=== PATIENT | female | born 1955 ===

== ENCOUNTER 2016-11-20 06:48 | Day surgery (SDC) | payer OTHER, MEDICAID ==
[2016-11-20] MEDS ORDERED: VANCOMYCIN FOR CATARACT SURGERY MC ONE ×2 (07:00)
[2016-11-20] MEDS ORDERED: BALANCED SALT IRRIG SOLN COMB1 500 ML, VANCOMYCIN FOR BSS PLUS 10 MG, GENTAMICIN SULFAT... IO ONE ×4 (07:00)
== END 2016-11-20 07:25 | disposition home or self-care (01) ==
LOC: DS 06:48
PROVIDERS: ATTEND Ophthalmology
DX: H26.9 Unspecified cataract (principal); Z53.9 Procedure and treatment not carried out, unspecified reason; E03.9 Hypothyroidism, unspecified; E66.9 Obesity, unspecified
CPT/HCPCS: A4663; J0171; J1580; J3370; J7030

== ENCOUNTER 2016-12-18 06:59 | Day surgery (SDC) | payer OTHER, MEDICAID ==
[2016-12-18] MEDS ORDERED: VANCOMYCIN FOR CATARACT SURGERY MC ONE ×2 (07:00)
[2016-12-18] MEDS ORDERED: BALANCED SALT IRRIG SOLN COMB1 500 ML, VANCOMYCIN FOR BSS PLUS 10 MG, GENTAMICIN SULFAT... IO ONE ×4 (07:00)
[2016-12-18] MEDS ORDERED: IV LACTATED RINGERS SOLUTION 1,000 ML BAG IV ONE (07:00)
[2016-12-18] MEDS ORDERED: FLURBIPROFEN 0.03% OPHT DROP 2.5 ML BOTTLE ONE (07:14)
[2016-12-18] MEDS ORDERED: PHENYLEPHRINE 2.5% OPHT DROP 2 ML BOTTLE ONE (07:15)
[2016-12-18] MEDS ORDERED: CIPROFLOXACIN 0.3% OPHT DROP 2.5 ML BOTTLE ONE (07:15)
[2016-12-18] MEDS ORDERED: TROPICAMIDE 1% OPHT DROP 3 ML BOTTLE ONE (07:15)
[2016-12-18] MEDS ORDERED: CYCLOPENTOLATE 1% OPHT DROP 2 ML BOTTLE ONE (07:15)
[2016-12-18] MEDS ORDERED: TIMOLOL MALEATE 0.5% OPHT DROP 5 ML BOTTLE ONE (07:42)
[2016-12-18] MEDS ORDERED: NEO/POLYMYX B/DEXAME OPHT OINT 3.5 GM TUBE ONE (07:42)
[2016-12-18] MEDS ORDERED: LIDOCAINE-MPF 2% 5 ML VIAL ONE (07:42)
[2016-12-18] MEDS ORDERED: LIDOCAINE HCL-MPF 1% 5 ML VIAL ONE (07:43)
[2016-12-18] MEDS ORDERED: TETRACAINE HCL 0.5% OPHT DROP 2 ML BOTTLE ONE (07:43)
[2016-12-18] MEDS ORDERED: EPINEPHRINE 1 MG/1 ML AMP ONE (07:43)
[2016-12-18] MEDS ORDERED: HYALURONATE SODIUM 12.8 MG/0.8 ML DISP.SYRIN ONE (07:44)
[2016-12-18] MEDS ORDERED: HYALURONIDASE,OVINE 200 UNITS/ML VIAL ONE (07:44)
[2016-12-18] MEDS ORDERED: HYALURONATE SODIUM 8.5 MG/0.85 ML DISP.SYRIN ONE (07:44)
[2016-12-18] MEDS ORDERED: BALANCED SALT IRRIG SOLN COMB2 15 ML IRRIG.SOLN ONE (07:44)
[2016-12-18] MEDS ORDERED: ACETYLCHOLINE CHLORIDE 1% OPHT 1 EA KIT ONE (07:44)
[2016-12-18] MEDS ORDERED: BUPIVACAINE PF 0.5% 30 ML VIAL ONE (07:44)
[2016-12-18 08:06] LABS: *BILIRUBIN,URIN NEGATIVE (NEGATIVE); *BLOOD, URINE NEGATIVE (NEGATIVE); *CLARITY,URINE CLEAR (CLEAR); *COLOR,URINE YELLOW (YELLOW); *KETONES,URINE NEGATIVE (NEGATIVE); *PROTEIN,URINE NEGATIVE (NEGATIVE); *UROBILINOGEN,URINE 0.2 E.U./dl (NORMAL); LEUKOCYTE ESTERASE ,URINE NEGATIVE (NEGATIVE); NITRITE, URINE NEGATIVE (NEGATIVE); UGLUCOSE NEGATIVE (NEGATIVE)
[2016-12-18 08:11] LABS: BACTERIA,URINE NONE SEEN /HPF (NONE SEEN); RBC,URINE NONE SEEN /HPF (0-3); SQUAMOUS EPITHELIAL CELL,UR FEW /HPF (NONE SEEN); WBC,URINE 0-3 /HPF (0-3)
[2016-12-18] MEDS ORDERED: FENTANYL CITRATE 100 MCG/2 ML AMPUL ONE (08:18)
== END 2016-12-18 11:00 | disposition home or self-care (01) ==
LOC: DS 06:59
PROVIDERS: ATTEND Ophthalmology
DX: H26.9 Unspecified cataract (principal); E03.9 Hypothyroidism, unspecified; M19.90 Unspecified osteoarthritis, unspecified site; Z98.890 Other specified postprocedural states; E66.9 Obesity, unspecified
CPT/HCPCS: 71010; A4663; J0171; J1580; J3010; J3370; J3471; J3490; J7120; J7321; V2632